=== PATIENT | male | born 1990 | race Two or more races ===

== ENCOUNTER 2019-11-30 10:26 | Emergency (ER) | payer SELFPAY ==
[~2019-11-30] VITALS: Ht 175.3 cm; Wt 72.6 kg
[2019-11-30] MEDS ORDERED: LET TOPICAL SOLN 5 ML TOP ONE (13:00)
[2019-11-30 14:00] VITALS: BP 136/84
[2019-11-30] MEDS ORDERED: BACITRACIN TOP OINT 1 UD PKG TOP ONE (14:00)
== END 2019-11-30 14:03 | disposition home or self-care (01) ==
LOC: ER 10:26
DX: S61.211A Laceration without foreign body of left index finger without damage to nail, initial encounter (principal); W26.1XXA Contact with sword or dagger, initial encounter; Y93.89 Activity, other specified; Y99.8 Other external cause status; Y92.89 Other specified places as the place of occurrence of the external cause
CPT/HCPCS: 12001; 99283; J3490